=== PATIENT | male | born 1990 | race Caucasian/White ===

== ENCOUNTER 2019-06-05 11:56 | Emergency (ER) | payer SELFPAY ==
[2019-06-05 12:21] VITALS: BP 132/102; PULSE 97; RESP 16; TEMP 36.6; O2SAT 97; BMI 45.6
--- NOTE | 2019-06-05 12:24 | XR_ITS ---
WS: [id number] XR chest 1V portable [id number] REASON FOR EXAM: cp FINDINGS: The heart and mediastinum appear to be normal. The lung hilario are well aerated. No pneumonia, pleural effusion, pulmonary edema, pneumothorax, or m ass effect. The hilum and apices are normal. No osseous abnormalities. XR/XR chest 1V portable [id number] IMPRESSION: Negative chest for acute findings.
--- NOTE | 2019-06-05 12:25 | ECG_ITS ---
Measurements Intervals [place] Rate: 97 P: 32 MT: 166 QRS: 63 QRSD: 94 T: 16 QT: 335 QTc: 426 SINUS RHYTHM NONSPECIFIC T-WAVE ABNORMALITY No previous ECG available for comparison Electronically Signed On 06-06-2019 12:41:42 CDT by [place] [email or web address]
--- NOTE | 2019-06-05 12:25 | W.ED.CHESTPA ---
HPI - Chest Pain General: Chief Complaint: Chest Pain Stated Complaint: CP X 2DAYS Time Seen by Provider: 06/05/19 12:21 Source: patient Mode of arrival: ambulatory Limitations: no limitations History of Present Illness: HPI narrative: 28-year-old male who states he has had chest pain over the last 2 days. He states pain is pressure type pain he also has had palpitations and dyspnea. He denies any worsening improving factors. He denies any fevers. MD complaint: chest pain and chest heaviness Onset (ago): day(s) Timing of current episode: episodic Prior episodes: No Pain location: substernal Pain radiation: none Severity: mild Quality: tightness Relieving factors: nothing Associated symptoms: Reports dyspnea; Deny abdominal pain, fever(s), nausea or vomiting Review of Systems Const: Denies: fever, chills, body aches or change in appetite Eyes: Denies: blurry vision or eye discomfort ENMT: Denies: throat pain or dental pain Card: Reports: chest pain Resp: Reports: shortness of breath GI: Denies: abdominal pain, nausea, vomiting or diarrhea : Denies: painful urination Musc: Denies: neck pain or back pain Skin/Breast: Denies: rash Neuro: Denies: headache Psych: Denies: depression Román/Lymph: Denies: easy bruising All/Imm: Denies: hives PFS ED PFSH: Social History Smoking and tobacco status: current some day smoker Physical Exam Const: COMMON NORMALS: no apparent distress, oriented x3 and healthy appearing HENMT: COMMON NORMALS: normocephalic and head/scalp atraumatic HEAD & SCALP: normocephalic and atraumatic Eye: COMMON NORMALS: PERRL and EOMs intact bilaterally PUPIL: Yes PERRL Neck/C-Spine: COMMON NORMALS: full ROM and supple Chest: COMMONS NORMALS: inspection of chest normal and palpation of chest normal Resp: COMMON NORMALS: normal respiratory effort, no retractions, no use of accessory muscles and clear to auscultation bilaterally AUSCULTATION: clear to auscultation bilaterally Cardio: COMMON NORMALS: regular rate, regular rhythm and no murmurs RATE: regular rate RHYTHM: regular rhythm GI: COMMON NORMALS: normal to inspection, nondistended, normoactive bowel sounds, soft to palpation, non-tender and no masses PALPATION: Yes soft Extremity: COMMON NORMALS: normal to inspection and full ROM Neuro: COMMON NORMALS: oriented x3, moves all extremities and no focal motor deficits Psych: COMMON NORMALS: mental status grossly normal, thought process normal and cooperative THOUGHT PROCESS: normal thought process Skin: COMMON NORMALS: no rashes or lesions noted and no wounds GENERAL SKIN EXAM: no rashes or lesions noted Course Vital Signs: Vital signs: Vital Signs Temperature 97.9 F 06/05/19 12:21 Pulse Rate 95 06/05/19 14:00 Respiratory Rate 16 06/05/19 14:00 Blood Pressure 139/84 06/05/19 14:00 Pulse Oximetry 97 06/05/19 14:00 MDM - Chest Pain MDM Narrative: Medical decision making narrative: Chu presents here with chest pain that is atypical in nature. He is very young and risk factor is diabetes still has a low heart score. His initial and repeat troponins here are negative and EKG is negative as well. Patient's d-dimer is negative and has no signs of pulmonary embolism. Patient is stable for discharge and is to follow-up with his primary care doctor in 2 to 4 days and return to the ER if worsening. Patient understands and agrees to plan. Lab Data: Labs: Lab Results 06/05/19 06/05/19 06/05/19 Range/Units 12:35 12:35 12:35 WBC 12.9 H (4.0-10.0) 10^3/ uL RBC 5.67 H (4.1-5.3) 10^6/u L Hgb 14.4 (11.7-16.6) g/dL Hct 44.3 (42.0-52.0) % MCV 78.1 L (80-94) fL MCH 25.4 L (28.0-34.0) pg MCHC 32.5 (30.0-36.0) g/dL RDW 13.7 (12.1-15.1) % Plt Count 343 (130-400) 10^3/c mm MPV 10.1 (7.4-10.4) fL Neut % (Auto) 61.3 % Lymph % (Auto) 28.3 % Woodruff % (Auto) 7.9 % Eos % (Auto) 1.6 % Baso % (Auto) 0.5 % Neut # (Auto) 7.9 H (1.8-7.7) 10^3/u L Lymph # (Auto) 3.7 (0.8-4.8) 10^3/u L Woodruff # (Auto) 1.0 H (0.2-0.9) 10^3/u L Eos # (Auto) 0.2 (0.0-0.8) 10^3/u L Baso # (Auto) 0.1 (0.0-0.1) 10^3/u L Nucleated RBC % (a uto) 0 % Nucleated RBCs # 0.0 /100WBC D-Dimer <= 0.27 (0-0.59) ug/mIFE U Sodium 135 L (136-145) mmol/L Potassium 4.4 (3.5-5.1) mmol/L Chloride 96 L (98-107) mmol/L Carbon Dioxide 27 (22-29) mmol/L Anion Gap 16.4 (5-19) BUN 11 (6-20) mg/dL Creatinine 0.5 L (0.7-1.2) mg/dL GFR Calculation 201.0 H (90-130) mL/min Glucose 224 H (65-115) mg/dL Calculated Osmolal ity 283 L (285-295) mOsm/k g Calcium 9.5 (8.5-10.5) mg/dL Total Bilirubin 0.4 (0.15-1.2) mg/dL AST 14 (0-40) U/L ALT 20 (0-41) U/L Alkaline Phosphata se 81 (40-130) IU/L Troponin T Baselin e (0-15) ng/mL Troponin T 120 Min [place] (0-15) ng/mL Delta Troponin T (0-10) ABS# NT-Pro-B Natriuret Pep 5 (0-125) pg/mL Total Protein 7.5 (6.6-8.7) g/dL Albumin 4.0 (3.5-5.2) g/dL Globulin 3.5 (1.3-4.6) g/dL 06/05/19 06/05/19 Range/Units 12:35 14:36 WBC (4.0-10.0) 10^3/ uL RBC (4.1-5.3) 10^6/u L Hgb (11.7-16.6) g/dL Hct (42.0-52.0) % MCV (80-94) fL MCH (28.0-34.0) pg MCHC (30.0-36.0) g/dL RDW (12.1-15.1) % Plt Count (130-400) 10^3/c mm MPV (7.4-10.4) fL Neut % (Auto) % Lymph % (Auto) % Woodruff % (Auto) % Eos % (Auto) % Baso % (Auto) % Neut # (Auto) (1.8-7.7) 10^3/u L Lymph # (Auto) (0.8-4.8) 10^3/u L Woodruff # (Auto) (0.2-0.9) 10^3/u L Eos # (Auto) (0.0-0.8) 10^3/u L Baso # (Auto) (0.0-0.1) 10^3/u L Nucleated RBC % (a uto) % Nucleated RBCs # /100WBC D-Dimer (0-0.59) ug/mIFE U Sodium (136-145) mmol/L Potassium (3.5-5.1) mmol/L Chloride (98-107) mmol/L Carbon Dioxide (22-29) mmol/L Anion Gap (5-19) BUN (6-20) mg/dL Creatinine (0.7-1.2) mg/dL GFR Calculation (90-130) mL/min Glucose (65-115) mg/dL Calculated Osmolal ity (285-295) mOsm/k g Calcium (8.5-10.5) mg/dL Total Bilirubin (0.15-1.2) mg/dL AST (0-40) U/L ALT (0-41) U/L Alkaline Phosphata se (40-130) IU/L Troponin T Baselin e 6 (0-15) ng/mL Troponin T 120 Min [place] 6.00 (0-15) ng/mL Delta Troponin T 0 (0-10) ABS# NT-Pro-B Natriuret Pep (0-125) pg/mL Total Protein (6.6-8.7) g/dL Albumin (3.5-5.2) g/dL Globulin (1.3-4.6) g/dL Imaging Data^: CXR: Radiologist's impression: [address] [address] XRay Report Signed Patient: Chu Yuan Unit #: [id number] : 1990 Age/Sex: 28 / M ADM Date: 06/05/19 Loc: ER Room/Bed: Attending Dr: Ordering Provider/Ordering MD: Bridger Joyce MD Date of Service: 06/05/19 Procedure(s): XR chest 1V portable [id number] Accession Number(s): [id number] Report Number: [id number] WS: [id number] XR chest 1V portable [id number] REASON FOR EXAM: cp FINDINGS: The heart and mediastinum appear to be normal. The lung hilario are well aerated. No pneumonia, pleural effusion, pulmonary edema, pneumothorax, or mass effect. The hilum and apices are normal. No osseous abnormalities. XR/XR chest 1V portable [id number] IMPRESSION: Negative chest for acute findings. EKG Data^: EKG 1: Attestation: I personally reviewed and interpreted this EKG as follows: EKG interpretation date: 06/05/19 EKG interpretation time: 12:36 Interpretation: nsr hr [address] or t wave abnormalities qrs 94 qtc 389 EKG 2: Attestation: I personally reviewed and interpreted this EKG as follows: EKG interpretation date: 06/05/19 EKG interpretation time: 14:25 Interpretation: nsr hr [address] or t wave abnormalities qrs 104 qtc 406 Discharge Plan Discharge Patient Disposition: Home, Self-Care Clinical Impression: Chest pain Qualifiers: Chest pain type: unspecified Qualified Code(s): R07.9 - Chest pain, unspecified Condition: Stable Discharge Orders: Discharge Order (Routine); Ordered 06/05/19 Ordered By: Bridger Joyce Referrals: Gil Henriquez MD [Primary Care Provider] - 4-7 days Discharge Diet: Advance as tolerated Discharge Activity: Resume usual activity Patient Instructions: Chest Pain (ED) Coding Level of Care Code ED Facilities Maintenance Technician for Chg Fwd Exam Comprehensive
[2019-06-05 12:27] VITALS: PULSE 97; RESP 16; O2SAT 97
[2019-06-05 12:28] VITALS: PULSE 90; RESP 17
[2019-06-05] MEDS: nitroglycerin 0.4 mg sublingual Tablet SUBLINGUAL (12:34)
[2019-06-05] MEDS: aspirin 81 mg Chew Tablet 324 MG PO (12:35)
[2019-06-05 12:58] LABS: Basophils # 0.1 10^3/uL (0.0-0.1); Basophils % 0.5 %; Eosinophils # 0.2 10^3/uL (0.0-0.8); Eosinophils % 1.6 %; Hematocrit 44.3 % (42.0-52.0); Hemoglobin 14.4 g/dL (11.7-16.6); Lymphocytes # 3.7 10^3/uL (0.8-4.8); Lymphocytes % 28.3 %; Mean Corpuscular HGB Conc 32.5 g/dL (30.0-36.0); Mean Corpuscular Hemoglobin 25.4 pg (28.0-34.0); Mean Corpuscular Volume 78.1 fL (80-94); Mean Platelet Volume 10.1 fL (7.4-10.4); Monocytes % 7.9 %; Neutrophils # 7.9 10^3/uL (1.8-7.7); Neutrophils % 61.3 %; Nucleated Red Blood Cells % 0 %; Platelet Count 343 10^3/cmm (130-400); Red Blood Count 5.67 10^6/uL (4.1-5.3); Red Cell Distribution Width 13.7 % (12.1-15.1); White Blood Count 12.9 10^3/uL (4.0-10.0)
[2019-06-05 13:07] LABS: D Dimer <= 0.27 ug/mIFEU (0-0.59)
[2019-06-05 13:15] LABS: Troponin(5th) Baseline 6 ng/mL (0-15)
[2019-06-05 13:22] LABS: Alanine Aminotransferase 20 U/L (0-41); Alkaline Phosphatase 81 IU/L (40-130); Anion Gap 16.4 (5-19); Aspartate Amino Transferase 14 U/L (0-40); Blood Urea Nitrogen 11 mg/dL (6-20); Calcium 9.5 mg/dL (8.5-10.5); Carbon Dioxide 27 mmol/L (22-29); Chloride 96 mmol/L (98-107); Globulin 3.5 g/dL (1.3-4.6); Glucose 224 mg/dL (65-115); NT Pro B Type Natriuretic Pept 5 pg/mL (0-125); Osmolality Calculated 283 mOsm/kg (285-295); Potassium 4.4 mmol/L (3.5-5.1); Sodium 135 mmol/L (136-145); Total Bilirubin 0.4 mg/dL (0.15-1.2); Total Protein 7.5 g/dL (6.6-8.7)
[2019-06-05 14:00] VITALS: BP 139/84; PULSE 95; RESP 16; O2SAT 97
--- NOTE | 2019-06-05 14:25 | ECG_ITS ---
Measurements Intervals [place] Rate: 87 P: 62 OR: 162 QRS: 75 QRSD: 104 T: 31 QT: 362 QTc: 436 SINUS RHYTHM NONSPECIFIC T-WAVE ABNORMALITY No previous ECG available for comparison Electronically Signed On 06-06-2019 12:46:49 CDT by [place] [email or web address]
[2019-06-05 15:00] LABS: Troponin 5 2HR Delta 0 ABS# (0-10)
[2019-06-05 15:31] VITALS: BP 137/69; PULSE 83; RESP 14; O2SAT 97
== END 2019-06-05 15:31 | disposition home or self-care (01) ==
PROVIDERS: Emergency Provider Emergency Medicine; Family Provider Family Medicine; PCP Family Medicine
DX: R07.9 Chest pain, unspecified (principal); F17.200 Nicotine dependence, unspecified, uncomplicated
CPT/HCPCS: 12345; 36415; 71045; 80053; 83880; 84484; 85025; 85378; 93005; 93010; 99283; 99284